=== PATIENT | male | born 2000 | race Caucasian/White ===

== ENCOUNTER 2018-09-30 22:29 | Emergency (ER) | payer OTHER ==
[~2018-09-30] VITALS: Ht 175.3 cm; Wt 72.6 kg
[2018-10-01 00:05] VITALS: BP 121/70
== END 2018-10-01 00:05 | disposition home or self-care (01) ==
LOC: M.ERS 22:29
DX: S93.491A Sprain of other ligament of right ankle, initial encounter (principal); S80.211A Abrasion, right knee, initial encounter; X58.XXXA Exposure to other specified factors, initial encounter; Y93.89 Activity, other specified; Y92.89 Other specified places as the place of occurrence of the external cause; Y99.8 Other external cause status

== ENCOUNTER 2019-09-28 16:31 | Emergency (ER) | payer OTHER ==
[~2019-09-28] VITALS: Ht 172.7 cm; Wt 77.1 kg
[2019-09-28 17:12] LABS: INFLUENZA A ANTIGEN Negative (Negative); INFLUENZA B ANTIGEN Negative (Negative)
[2019-09-28 17:35] LABS: ABSOLUTE MONOCYTES 0.7 thou/uL (0.0-1.2); ABSOLUTE NEUTROPHILS 4.7 thou/uL (1.6-8.1); BASOPHILS 0.5 %; EOSINOPHILS 0.5 %; HEMOGLOBIN 14.7 gm/dL (14.0-18.0); LYMPHOCYTES 15.6 %; MCH 32.1 pg (26.0-34.0); MCHC 35.9 g/dL (28.0-37.0); MCV 89.4 fL (80.0-100.0); MONOCYTES 11.1 %; MPV 8.6 fl. (7.2-11.1); NUCLEATED RBCS 0 /100WBC; PLATELET COUNT* 206 thou/uL (150-400); POLYS 72.3 %; RBC 4.59 mil/uL (4.50-6.00); WBC 6.5 thou/uL (4.0-11.0)
[2019-09-28 17:46] LABS: CALCIUM 8.8 mg/dL (8.5-10.1); POTASSIUM 3.6 mmol/L (3.5-5.1)
[2019-09-28 17:50] LABS: ALBUMIN 3.9 g/dL (3.4-5.0); TOTAL BILIRUBIN 2.6 mg/dL (<0.1-1.0); TOTAL PROTEIN 7.3 g/dL (6.4-8.2)
[2019-09-28 18:17] VITALS: BP 130/80
--- NOTE | 2019-09-29 09:59 | EKG ---
[place] [address] ELECTROCARDIOGRAM REPORT Name: EV LOPEZ Room: [facility]#: [id number] Admission: 09/28/19 Attend Phys: Discharge: 09/28/19 Date of : [birth year] Report #: [id number] THIS REPORT FOR: //name// [facility] ED Test Date: 2019-09-28 Test Time: 16:36:26 Pat Name: EV LOPEZ Department: Room: Gender: M [employer]: CT : 2000 Requested By: Flaquito Calero Order Number: [id number] MD: Miko Sloan Measurements Intervals Mitchell Rate: 115 P: 68 MN: 138 QRS: 63 QRSD: 87 T: 26 QT: 296 QTc: 410 Interpretive Statements Sinus tachycardia Left atrial enlargement RSR' in V1 or V2, right VCD or RVH No previous ECG available for comparison Electronically Signed On 09-29-2019 9:58:52 [employer] by Miko Sloan [email or web address] <ELECTRONICALLY SIGNED> By: Miko Sloan MD, [facility] 09/29/19 0958 D: [id number] Miko Sloan MD, FACC /EPI
== END 2019-09-28 18:17 | disposition home or self-care (01) ==
LOC: M.ERS 16:31
PROVIDERS: Family Medicine
DX: B34.9 Viral infection, unspecified (principal); Z91.018 Allergy to other foods